=== PATIENT | male | born 2000 | race Caucasian/White ===

== ENCOUNTER 2021-11-01 11:07 | Emergency (ER) | payer OTHER, SELFPAY ==
--- NOTE | ~2021-11-01 | XR_ITS ---
XR thoracic spine 3V DATE: 11/01/2021 11:37 INDICATION: Mid upper left back pain since October 29, 2021 TECHNIQUE: AP, lateral, swimmer views COMPARISON: None FINDINGS: There is minimal thoracic scoliosis. There is minimal degenerative spurring of the thoracic spine. No fracture or bone destruction. The thoracic pedicles are intact. No paraspinal soft tissue thickeni ng. IMPRESSION: Minimal scoliosis and minimal degenerative spurring Reviewed, dictated and finalized at location A.
[2021-11-01 11:16] VITALS: BP 131/77; PULSE 75; RESP 16; TEMP 36.9; O2SAT 100
--- NOTE | 2021-11-01 11:28 | ED.BACK ---
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 He reports increased pain with movement and with taking a deep breath. Patient reports that he has been taking Ibuprofen and using heating pad to his back. Patient states that he attempted to work today and pain was increasing with shoveling and it felt like it went through his chest. Patient reports that he has no radiation of pain into his legs with no tingling or numbness to his extremities noted, no problems with his bowels or bladder MD elicited complaint: back pain Onset (ago): day(s) (3) Severity: moderate Pain scale (0-10): 5 Related Data Allergies Allergy/AdvReac Type Severity Reaction Status Date / Time No Known Allergies Allergy Verified 11/01/21 11:52 Review of Systems Review of Systems: CONSTITUTIONAL: Denies fever, chills, or sweats. EYES: Denies visual changes, redness, or discharge. ENT: Denies rhinorrhea, congestion, sore throat, or otalgia. CARDIOVASCULAR: Denies chest pain, palpitations, or edema. RESPIRATORY: Denies cough or dyspnea. GASTROINTESTINAL: Denies abdominal pain, nausea, vomiting, or diarrhea. GENITOURINARY: Denies dysuria or hematuria. SKIN: Denies rash or itching. MUSCULOSKELETAL: Reports left middle back pain, joint pain, or myalgia. NEUROLOGIC: Denies headache, numbness, or weakness. PSYCHIATRIC: Denies anxiety or depression. All systems reviewed & are unremarkable except as noted in HPI and below PMFSH Past Medical History Medical History (Updated 11/03/21 @ 13:22 by Molly Curry NP) Right shoulder injury AC separation Type III Surgical History Surgical History (Updated 11/03/21 @ 13:21 by Molly Curry NP) History of placement of ear tubes as child Social History Social History (Updated 11/03/21 @ 13:10 by Molly Curry NP) Smoking status: Current every day smoker Tobacco type: e-cigarettes/vaping Alcohol intake: current Substance use type: does not use Living arrangements: with family Gender identity (if verbalized by the patient): Male Comments At time of signature, agree with nursing past medical, surgical, social and family history. There is no relevant family history pertinent to the presenting complaint Exam Narrative: GENERAL: Well-appearing, well-nourished, and in no acute distress. HEAD: Normocephalic, atraumatic. EYES: PERRLA and EOMI. ENT: Nares clear, no rhinorrhea or epistaxis. Mucous membranes moist. TMs normal with good light reflex throat pink with no lesions or exudate no tonsillar swelling NECK: Supple.no lymphadenopathy CHEST: Clear to auscultation. No respiratory distress.some pain increased with deep breathing, SaO2 100% on room air HEART: Regular rate and rhythm. No murmur heard. Normal peripheral pulses. ABDOMEN: Soft, nontender, nondistended, normal active bowel sounds. EXTREMITIES: Normal range of motion. No edema. Pain to left mid back which increases with movement and deep breathing no radiation of pain into legs denies any saddle paresthesia. Patient denies any tingling or numbness into the lower extremities, strong pulses to bilateral feet.left paraspinal muscle tenderness on palpation. SKIN: Warm, dry, no rash. NEURO: No focal deficits. Alert and oriented x3. Course Course Level of Care: Express Care Visit Vital Signs Vital signs: Vital Signs Temperature 36.9 C 11/01/21 11:16 Pulse Rate 75 11/01/21 11:16 Respiratory Rate 16 11/01/21 11:16 Blood Pressure 131/77 11/01/21 11:16 Pulse Oximetry 100 11/01/21
--- NOTE | 2021-11-01 11:28 | ED.BACK ---
HPI - Back Pain/Injury General Chief Complaint: Back Pain/Injury Stated Complaint: pain in middle of back Time Seen by Provider: 11/01/21 11:29 Source: patient, RN notes reviewed and old records reviewed Mode of arrival: ambulatory Limitations: no limitations History of Present Illness HPI Narrative: 20 year old male who presents to [facility] with complaint of left thoracic back pain under scapular area which started on Sunday with no known injury. 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 MD elicited complaint: back pain Pertinent past history: other (AC separation right shoulder) Related Data Allergies Allergy/AdvReac Type Severity Reaction Status Date / Time No Known Allergies Allergy Verified 11/01/21 11:52 Review of Systems Review of Systems: CONSTITUTIONAL: Denies fever, chills, or sweats. EYES: Denies visual changes, redness, or discharge. ENT: Denies rhinorrhea, congestion, sore throat, or otalgia. CARDIOVASCULAR: Denies chest pain, palpitations, or edema. RESPIRATORY: Denies cough or dyspnea. GASTROINTESTINAL: Denies abdominal pain, nausea, vomiting, or diarrhea. GENITOURINARY: Denies dysuria or hematuria. SKIN: Denies rash or itching. MUSCULOSKELETAL: Denies back pain, joint pain, or myalgia. NEUROLOGIC: Denies headache, numbness, or weakness. PSYCHIATRIC: Denies anxiety or depression. [facility] Surgical History Surgical History (Updated 11/01/21 @ 11:43 by Molly Curry NP) History of shoulder surgery Social History Social History (Updated 11/01/21 @ 11:42 by Molly Curry NP) Smoking status: Current every day smoker Tobacco type: e-cigarettes/vaping Alcohol intake: current Living arrangements: with family Gender identity (if verbalized by the patient): Male Comments At time of signature, agree with nursing past medical, surgical, social and family history. There is no relevant family history pertinent to the presenting complaint Exam Narrative: GENERAL: Well-appearing, well-nourished, and in no acute distress. HEAD: Normocephalic, atraumatic. EYES: PERRLA and EOMI. ENT: Nares clear, no rhinorrhea or epistaxis. Mucous membranes moist. NECK: Supple. CHEST: Clear to auscultation. No respiratory distress. HEART: Regular rate and rhythm. No murmur heard. Normal peripheral pulses. ABDOMEN: Soft, nontender, nondistended, normal active bowel sounds. EXTREMITIES: Normal range of motion. No edema. SKIN: Warm, dry, no rash. NEURO: No focal deficits. Alert and oriented x3. Course Course Level of Care: Express Care Visit Vital Signs Vital signs: Vital Signs Temperature 36.9 C 11/01/21 11:16 Pulse Rate 75 11/01/21 11:16 Respiratory Rate 16 11/01/21 11:16 Blood Pressure 131/77 11/01/21 11:16 Pulse Oximetry 100 11/01/21 11:16 Oxygen Delivery Room Air 11/01/21 11:16 Temperature 36.9 C 11/01/21 11:16 Pulse Rate 75 11/01/21 11:16 Respiratory Rate 16 11/01/21 11:16 Blood Pressure 131/77 11/01/21 11:16 Pulse Oximetry 100 11/01/21 11:16 Oxygen Delivery Room Air 11/01/21 11:16 MDM - Back Pain/Injury Medical Records Attestation: I reviewed the patient's medical records. Critical Care Time Critical Care Time Critical Care Time: No Discharge Plan Discharge Clinical Impression: Strain of thoracic back region Patient Disposition: Home, Self-Care Condition: Stable Instructions: Thoracic Back Strain (ED) Additional Instructions: Ice and heat to the area for 20-30 minutes Gentle stretching exercises Gentle massage Caution with lifting, bending, stooping, twisting Avoid pushing, pulling take muscle relaxants as directed--caution drowsiness and no driving or alcohol Anti-inflammatory medicine as directed--take with food He may take the muscle relaxant and anti-inflammatory at the same time Follow-up with your PCP if not impr
== END 2021-11-01 12:17 | disposition home or self-care (01) ==
PROVIDERS: Emergency Provider Registered Nurse
DX: S29.012A Strain of muscle and tendon of back wall of thorax, initial encounter (principal); X58.XXXA Exposure to other specified factors, initial encounter; F17.290 Nicotine dependence, other tobacco product, uncomplicated
CPT/HCPCS: 72072; 99203; G0463